=== PATIENT | male | born 1985 | race Two or more races ===

== ENCOUNTER 2021-10-22 15:13 | Emergency (ER) | payer SELFPAY ==
[~2021-10-22] VITALS: Ht 170.2 cm; Wt 73.0 kg
[2021-10-22] MEDS ORDERED: SODIUM CHLORIDE 0.9% 1,000 ML IVB ONE (15:30)
[2021-10-22] MEDS ORDERED: SODIUM CHLORIDE 0.9% 1,000 ML IV ONE (15:30)
[2021-10-22] MEDS ORDERED: IPRATROPIUM BROM 0.5 MG/2.5ML INH SOL NEB ONE ×2 (15:30→18:30)
[2021-10-22] MEDS ORDERED: ALBUTEROL SULF 2.5 MG/0.5ML(0.5%) NEB SOLN NEB ONE ×2 (15:30→18:30)
[2021-10-22] MEDS ORDERED: methylPREDNISolone SOD SUCC 125 MG/2 ML VL IV ONE (15:30)
[2021-10-22 16:33] LABS: Eosinophils # (auto) 0.3 10 ^3/uL (0-0.8); White Blood Cell 8.3 10^3/uL (4.4-10.8)
[2021-10-22 16:34] LABS: Basophils # (auto) 0.1 10 ^3/uL (0-0.2); Basophils % (auto) 0.7 % (0.0-2.0); Eosinophils % (auto) 3.4 % (0.0-7.0); Hematocrit 50.9 % (41.0-53.0); Hemoglobin 16.5 g/dL (13.5-17.5); Lymphocytes # (auto) 2.5 10 ^3/uL (0.4-5.4); Lymphocytes % (auto) 29.7 % (10.0-50.0); Mean Corpuscular Hemoglobin 26.1 pg (28.0-32.0); Mean Corpuscular Hgb Conc. 32.4 g/dL (32.0-36.0); Mean Corpuscular Volume 80.5 fL (80.0-100.0); Monocytes % (auto) 12.3 % (0.0-12.0); Neutrophils # (auto) 4.5 10 ^3/uL (1.6-8.6); Neutrophils % (auto) 53.9 % (37.0-80.0); Nucleated Red Blood Cells % 0.1 %; Red Blood Cells 6.32 10^6/uL (4.5-5.90)
[2021-10-22 16:48] LABS: Albumin 4.5 g/dL (3.4-5.0); Calcium 9.7 mg/dL (8.5-10.1); Magnesium 2.4 mg/dL (1.6-2.6); Potassium 4.8 mmol/L (3.5-5.1)
[2021-10-22 16:51] LABS: Bilirubin, Total 1.2 mg/dL (0.2-1.0); Total Protein 8.5 g/dL (6.4-8.2)
[2021-10-22 17:09] LABS: BUN/Creatinine Ratio 13.7
[2021-10-22] MEDS ORDERED: ALBUAER3 IN (18:36)
[2021-10-22] MEDS ORDERED: PRED20TA2 PO (18:36)
[2021-10-22] MEDS ORDERED: AZIT500T PO (18:36)
[2021-10-22 19:05] VITALS: BP 138/89
== END 2021-10-22 19:12 | disposition home or self-care (01) ==
LOC: ER 15:19
DX: J45.901 Unspecified asthma with (acute) exacerbation (principal); F12.10 Cannabis abuse, uncomplicated
CPT/HCPCS: 36415; 71046; 80053; 83735; 85025; 94640; 94644; 96361; 96374; 99285; J2930; J7030; J7644

== ENCOUNTER 2021-12-06 17:18 | Emergency (ER) | payer MEDICAID, OTHER ==
[~2021-12-06] VITALS: Ht 167.6 cm; Wt 72.0 kg
[~2021-12-06 17:18] MED LIST: ALBUAER3 IN; AZIT500T PO; PRED20TA2 PO
[2021-12-06] MEDS ORDERED: ONDANSETRON HCL 4 MG/2 ML VIAL IM ONE (17:45)
[2021-12-06 18:19] LABS: Hemoglobin 15.2 g/dL (13.5-17.5); Mean Corpuscular Hemoglobin 25.7 pg (28.0-32.0); Red Blood Cells 5.93 10^6/uL (4.5-5.90)
[2021-12-06 18:21] LABS: Hematocrit 46.1 % (41.0-53.0); Mean Corpuscular Volume 77.8 fL (80.0-100.0); Red Cell Distribution Width 13.7 % (11.8-14.3); White Blood Cell 25.7 10^3/uL (4.4-10.8)
[2021-12-06 18:38] LABS: Alanine Aminotransferase 45 U/L (16-61); Albumin 3.7 g/dL (3.4-5.0); Anion Gap 9 (5-15); Aspartate Aminotransferase 33 U/L (15-37); BUN/Creatinine Ratio 8.3; Blood Urea Nitrogen 9 mg/dL (7-18); Calcium 9.1 mg/dL (8.5-10.1); Carbon Dioxide 26 mmol/L (21-32); Chloride 98 mmol/L (98-107); GFR African American 100 mL/min; GFR Non-African American 83 mL/min; Glucose 106 mg/dL (74-106); Lipase 108 U/L (73-393); Potassium 4.5 mmol/L (3.5-5.1); Sodium 133 mmol/L (136-145)
[2021-12-06 18:41] LABS: Alkaline Phosphatase 85 U/L (45-117); Bilirubin, Total 1.8 mg/dL (0.2-1.0)
[2021-12-06] MEDS ORDERED: ACETAMINOPHEN 325 MG TAB PO ONE (18:45)
[2021-12-06] MEDS ORDERED: MORPHINE SULFATE 4 MG/ML SYR/VIAL IM ONE (19:00)
[2021-12-06] MEDS ORDERED: PROMETHAZINE HCL 25 MG/ML 1ML IM ONE (19:00)
[2021-12-06 19:12] LABS: Basophils % (manual) 0 (0.0-2.0); Blast Cells 0; Eosinophils % (manual) 0 (0-7); Metamyelocytes % 0; Myelocytes % 0; Promyelocytes % 0; Reactive Lymphocytes 0
[2021-12-06 19:21] VITALS: BP 128/46
[2021-12-06] MEDS ORDERED: cefTRIAXone SOD 1,000 MG VL IM ONE (20:15)
[2021-12-06 20:20] LABS: Band Neutrophils % (manual) 12; Lymphocytes % (manual) 5 (10.0-50.0); Monocytes % (manual) 13 (0-12)
== END 2021-12-07 01:06 | disposition left against medical advice (07) ==
LOC: ER 17:18
DX: N39.0 Urinary tract infection, site not specified (principal); R11.15 Cyclical vomiting syndrome unrelated to migraine; F12.10 Cannabis abuse, uncomplicated; J45.909 Unspecified asthma, uncomplicated
CPT/HCPCS: 36415; 74176; 80053; 83690; 85007; 85027; 96372; 99284; J2270; J2405; J2550